=== PATIENT | male | born 1970 ===

== ENCOUNTER 2018-07-18 10:40 | Inpatient (IN) ==
[2018-07-18] MEDS ORDERED: INFLUENZA VIRUS VACCINE 0.5 ML SYRINGE IM ONE (13:50)
[2018-07-18] MEDS ORDERED: traZODone 50 MG TABLET PO PRN (15:04)
[2018-07-18] MEDS ORDERED: DOCUSATE SODIUM 100 MG CAPSULE PO PRN (15:04)
[2018-07-18] MEDS ORDERED: ONDANSETRON 4 MG/2 ML VIAL IV PRN (15:04)
[2018-07-18] MEDS ORDERED: DEXTROSE 50% 25 GM/50 ML SYRINGE IV PRN (15:09)
[2018-07-18] MEDS ORDERED: GLUCAGON 1 MG VIAL IM PRN (15:09)
[2018-07-18 15:29] LABS: Basophils # 0.1 10*3/uL (0.0-0.2); Basophils % 0.4 % (0.0-0.8); Eosinophils % 0.2 % (0.00-10.9); Hematocrit 31.6 VOL% (42.0-52.0); Hemoglobin 10.9 GM/DL (14.0-18.0); Immature Granulocytes % 0.8 %; Immature Granulocytes Absolute 0.11 #; Lymphocytes # 0.8 10*3/uL (1.4-4.0); Lymphocytes % 5.4 % (21.2-54.2); Mean Corpuscular HGB Conc 34.5 GM/DL (32-36); Mean Corpuscular Hemoglobin 31 PG (27-34); Mean Platelet Volume 12.3 FL (9.6-12.0); Monocytes # 1.2 10*3/uL (0.11-0.8); Monocytes % 8.3 % (1.7-12.7); Neutrophils # 11.7 10*3/uL (1.4-7.4); Neutrophils % 84.9 % (38.7-73.9); Red Blood Count 3.51 MC/CUMM (3.8-5.5); Red Cell Distribution Width 15.1 % (9.3-17.3); White Blood Count 13.8 T/CUMM (4-12)
[2018-07-18 15:53] LABS: Albumin 1.4 G/DL (3.4-5.0); Bilirubin,Total 2.8 MG/DL (0.2-1.0); Calcium 8.2 MG/DL (8.5-10.1); Osmolality,Calculated 279.5 MOS/KG (273-304); Total Protein 6.7 G/DL (6.4-8.3)
[2018-07-18 15:56] LABS: Platelet Count 33 T/CUMM (130-400)
[2018-07-18] MEDS ORDERED: CEFTAROLINE 600 MG in SODIUM CHLORIDE 0.9% 100 ML IV ONE (16:00)
[2018-07-18 16:15] LABS: Band Neutrophils 14 % (0-10); Eosinophils 1 % (0-10); Lymphocytes 8 % (20-55); Segmented Neutrophils 68 % (50-85); Total Cells Counted 100
[2018-07-18 16:16] LABS: Anisocytosis 1+; Platelet Estimate Decreased
[2018-07-18] MEDS: MORPHINE 4 MG/1 ML VIAL IV PRN ×2 (16:42→20:52)
[2018-07-18] MEDS: INSULIN LISPRO 100 UNIT/ML SUBCUT SCH ×2 (16:45→20:51)
[2018-07-18] MEDS: chlordiazePOXIDE 10 MG CAPSULE PO SCH (20:51)
[2018-07-18] MEDS: THIAMINE 100 MG TABLET PO SCH (20:51)
[2018-07-18] MEDS: FOLIC ACID 1 MG TABLET PO SCH (20:51)
[2018-07-19] MEDS: MORPHINE 4 MG/1 ML VIAL IV PRN ×2 (03:06→08:17)
[2018-07-19 05:07] LABS: Basophils # 0.1 10*3/uL (0.0-0.2); Basophils % 0.6 % (0.0-0.8); Eosinophils % 0.1 % (0.00-10.9); Hematocrit 35.1 VOL% (42.0-52.0); Hemoglobin 11.9 GM/DL (14.0-18.0); Immature Granulocytes % 1.1 %; Immature Granulocytes Absolute 0.19 #; Lymphocytes # 0.7 10*3/uL (1.4-4.0); Lymphocytes % 3.8 % (21.2-54.2); Mean Corpuscular HGB Conc 33.9 GM/DL (32-36); Mean Corpuscular Hemoglobin 31 PG (27-34); Mean Corpuscular Volume 90.7 FL (87-102); Mean Platelet Volume 13.5 FL (9.6-12.0); Monocytes % 5.8 % (1.7-12.7); Neutrophils # 15.5 10*3/uL (1.4-7.4); Neutrophils % 88.6 % (38.7-73.9); Red Blood Count 3.87 MC/CUMM (3.8-5.5); Red Cell Distribution Width 15.3 % (9.3-17.3); White Blood Count 17.5 T/CUMM (4-12)
[2018-07-19 05:13] LABS: Platelet Count 40 T/CUMM (130-400)
[2018-07-19 05:22] LABS: Calcium 8.2 MG/DL (8.5-10.1); Osmolality,Calculated 273.2 MOS/KG (273-304); Potassium 3.9 MMOL/L (3.5-5.1)
[2018-07-19 05:39] LABS: Folate 7.5 NG/ML (5.4-24.0); Vitamin B12 > 2000 PG/ML (211-911)
[2018-07-19 05:40] LABS: % Iron Saturation 42.6 % (18-50); Ferritin 2142.2 ng/ml (26-388)
[2018-07-19 06:19] LABS: Sedimentation Rate-Westergren 51 MM/HR (0-15)
[2018-07-19] MEDS: CEFTAROLINE 600 MG in SODIUM CHLORIDE 0.9% 100 ML IV SCH ×2 (06:26→17:58)
[2018-07-19 06:44] LABS: Band Neutrophils 4 % (0-10); Lymphocytes 3 % (20-55); Segmented Neutrophils 89 % (50-85)
[2018-07-19 06:45] LABS: Platelet Estimate Decreased; Polychromasia Few
[2018-07-19 06:46] LABS: Anisocytosis 2+; Macrocytosis 1+; Microcytosis 1+
[2018-07-19 06:47] LABS: Total Cells Counted 100
[2018-07-19] MEDS: INSULIN LISPRO 100 UNIT/ML SUBCUT SCH ×4 (09:00→20:26)
[2018-07-19] MEDS: chlordiazePOXIDE 10 MG CAPSULE PO SCH ×3 (09:00→20:26)
[2018-07-19] MEDS: THIAMINE 100 MG TABLET PO SCH ×2 (09:01→20:26)
[2018-07-19] MEDS ORDERED: INSULIN GLARGINE 100 UNIT/ML SUBCUT SCH (09:30)
[2018-07-19] MEDS ORDERED: GLUCAGON 1 MG VIAL IM PRN (12:47)
[2018-07-19] MEDS ORDERED: DEXTROSE 50% 25 GM/50 ML VIAL IV PRN (12:47)
[2018-07-19] MEDS: FOLIC ACID 1 MG TABLET PO SCH (20:26)
[2018-07-19] MEDS ORDERED: ENOXAPARIN 40 MG/0.4 ML SYRINGE SUBCUT SCH (21:00)
[2018-07-20] MEDS: MORPHINE 4 MG/1 ML VIAL IV PRN (01:51)
[2018-07-20 05:21] LABS: Basophils # 0.1 10*3/uL (0.0-0.2); Basophils % 0.6 % (0.0-0.8); Eosinophils # 0.1 10*3/uL (0.0-0.87); Eosinophils % 0.3 % (0.00-10.9); Hematocrit 30.8 VOL% (42.0-52.0); Hemoglobin 10.3 GM/DL (14.0-18.0); Immature Granulocytes % 2.3 %; Lymphocytes # 1.3 10*3/uL (1.4-4.0); Lymphocytes % 6.1 % (21.2-54.2); Mean Corpuscular HGB Conc 33.4 GM/DL (32-36); Mean Corpuscular Hemoglobin 31 PG (27-34); Mean Corpuscular Volume 91.7 FL (87-102); Monocytes # 1.4 10*3/uL (0.11-0.8); Monocytes % 6.4 % (1.7-12.7); NRBC # 0.03 10*3/uL; Neutrophils # 17.9 10*3/uL (1.4-7.4); Neutrophils % 84.3 % (38.7-73.9); Red Blood Count 3.36 MC/CUMM (3.8-5.5); Red Cell Distribution Width 15.8 % (9.3-17.3); White Blood Count 21.3 T/CUMM (4-12)
[2018-07-20 05:24] LABS: Platelet Count 42 T/CUMM (130-400)
[2018-07-20 05:39] LABS: Calcium 8.1 MG/DL (8.5-10.1); Osmolality,Calculated 274.2 MOS/KG (273-304); Potassium 3.8 MMOL/L (3.5-5.1)
[2018-07-20] MEDS: CEFTAROLINE 600 MG in SODIUM CHLORIDE 0.9% 100 ML IV SCH ×2 (05:41→18:05)
[2018-07-20 05:44] LABS: Band Neutrophils 2 % (0-10); Hypochromasia Slight; Lymphocytes 6 % (20-55); Metamyelocytes 1 %; Platelet Estimate Decreased; Segmented Neutrophils 85 % (50-85); Total Cells Counted 100
[2018-07-20] MEDS ORDERED: INSULIN GLARGINE 100 UNIT/ML SUBCUT SCH (07:31)
[2018-07-20] MEDS: SODIUM CHLORIDE 0.9% 1,000 ML IV SCH ×2 (08:44→22:21)
[2018-07-20] MEDS: chlordiazePOXIDE 10 MG CAPSULE PO SCH ×3 (08:49→20:21)
[2018-07-20] MEDS: THIAMINE 100 MG TABLET PO SCH ×2 (08:49→20:21)
[2018-07-20] MEDS: INSULIN LISPRO 100 UNIT/ML SUBCUT SCH ×4 (08:50→20:21)
[2018-07-20] MEDS ORDERED: CALCIUM CARBONATE CHEW 500 MG TABLET PO PRN (09:21)
[2018-07-20] MEDS: FOLIC ACID 1 MG TABLET PO SCH (20:21)
[2018-07-21] MEDS: SODIUM CHLORIDE 0.9% 1,000 ML IV SCH ×2 (01:48→10:16)
[2018-07-21 04:49] LABS: Basophils # 0.1 10*3/uL (0.0-0.2); Basophils % 0.5 % (0.0-0.8); Eosinophils # 0.1 10*3/uL (0.0-0.87); Eosinophils % 0.6 % (0.00-10.9); Hematocrit 29.9 VOL% (42.0-52.0); Immature Granulocytes % 3.5 %; Immature Granulocytes Absolute 0.44 #; Lymphocytes # 1.2 10*3/uL (1.4-4.0); Lymphocytes % 9.6 % (21.2-54.2); Mean Corpuscular HGB Conc 33.4 GM/DL (32-36); Mean Corpuscular Hemoglobin 31 PG (27-34); Mean Corpuscular Volume 93.4 FL (87-102); Mean Platelet Volume 11.8 FL (9.6-12.0); Monocytes % 8.1 % (1.7-12.7); NRBC # 0.08 10*3/uL; Neutrophils # 9.9 10*3/uL (1.4-7.4); Neutrophils % 77.7 % (38.7-73.9); Red Cell Distribution Width 16.4 % (9.3-17.3); White Blood Count 12.7 T/CUMM (4-12)
[2018-07-21 04:54] LABS: Platelet Count 31 T/CUMM (130-400)
[2018-07-21 05:13] LABS: Calcium 7.8 MG/DL (8.5-10.1); Osmolality,Calculated 282.2 MOS/KG (273-304); Potassium 3.7 MMOL/L (3.5-5.1)
[2018-07-21 05:14] LABS: Band Neutrophils 5 % (0-10); Hypochromasia 1+; Lymphocytes 4 % (20-55); Microcytosis Slight; Ovalocytes Slight; Platelet Estimate Decreased; Segmented Neutrophils 86 % (50-85); Total Cells Counted 100
[2018-07-21] MEDS: CEFTAROLINE 600 MG in SODIUM CHLORIDE 0.9% 100 ML IV SCH (05:39)
[2018-07-21] MEDS ORDERED: INSULIN GLARGINE 100 UNIT/ML SUBCUT SCH ×2 (07:36→15:39)
[2018-07-21] MEDS: INSULIN LISPRO 100 UNIT/ML SUBCUT SCH ×4 (08:06→20:58)
[2018-07-21] MEDS: chlordiazePOXIDE 10 MG CAPSULE PO SCH ×3 (08:07→20:58)
[2018-07-21] MEDS: THIAMINE 100 MG TABLET PO SCH ×2 (08:07→20:58)
[2018-07-21 11:05] LABS: Hemoglobin A1 (Alkaline) 97.2 % (96.5-98.5); Hemoglobin A2 (Alkaline) 2.8 % (1.5-3.5)
[2018-07-21] MEDS: VANCOMYCIN INJ 1,000 MG in SODIUM CHLORIDE 0.9% 250 ML IV SCH (16:37)
[2018-07-21 19:03] LABS: Calcium 7.7 MG/DL (8.5-10.1); Osmolality,Calculated 272.4 MOS/KG (273-304); Potassium 3.8 MMOL/L (3.5-5.1)
[2018-07-21] MEDS: FOLIC ACID 1 MG TABLET PO SCH (20:58)
[2018-07-21] MEDS: LACTULOSE 20 GM/30 ML UDCUP PO SCH (23:25)
[2018-07-22] MEDS: SODIUM CHLORIDE 0.9% 1,000 ML IV SCH (02:17)
[2018-07-22] MEDS: LACTULOSE 20 GM/30 ML UDCUP PO SCH ×3 (05:01→22:09)
[2018-07-22 05:08] LABS: Basophils % 0.5 % (0.0-0.8); Eosinophils # 0.1 10*3/uL (0.0-0.87); Eosinophils % 0.8 % (0.00-10.9); Hematocrit 29.7 VOL% (42.0-52.0); Hemoglobin 9.8 GM/DL (14.0-18.0); Immature Granulocytes % 3.7 %; Immature Granulocytes Absolute 0.31 #; Lymphocytes # 1.3 10*3/uL (1.4-4.0); Lymphocytes % 15.7 % (21.2-54.2); Mean Corpuscular Hemoglobin 31 PG (27-34); Mean Corpuscular Volume 95.2 FL (87-102); Mean Platelet Volume 13.3 FL (9.6-12.0); Monocytes # 0.8 10*3/uL (0.11-0.8); Monocytes % 9.9 % (1.7-12.7); Neutrophils # 5.8 10*3/uL (1.4-7.4); Neutrophils % 69.4 % (38.7-73.9); Red Blood Count 3.12 MC/CUMM (3.8-5.5); Red Cell Distribution Width 17.3 % (9.3-17.3); White Blood Count 8.4 T/CUMM (4-12)
[2018-07-22 05:11] LABS: Platelet Count 35 T/CUMM (130-400)
[2018-07-22 05:26] LABS: Calcium 7.6 MG/DL (8.5-10.1); Osmolality,Calculated 281.5 MOS/KG (273-304); Potassium 3.8 MMOL/L (3.5-5.1)
[2018-07-22 05:29] LABS: Band Neutrophils 2 % (0-10); Hypochromasia 1+; Lymphocytes 9 % (20-55); Microcytosis Slight; Nucleated Red Blood Cells 1 (0-5); Platelet Estimate Decreased; Segmented Neutrophils 83 % (50-85); Total Cells Counted 100
[2018-07-22] MEDS ORDERED: SODIUM CHLORIDE 0.9% 1,000 ML IV PRN (07:20)
[2018-07-22] MEDS ORDERED: LIDOCAINE 1%/EPI INJ 20 ML VIAL ONE (10:39)
[2018-07-22] MEDS ORDERED: FAMOTIDINE 20 MG/2 ML VIAL IV ONE ×2 (10:49→10:55)
[2018-07-22] MEDS ORDERED: PROPOFOL 200 MG/20 ML VIAL IV ONE (11:55)
[2018-07-22] MEDS ORDERED: SEVOFLURANE 1 UNIT/15 MINUTE INH ONE (11:56)
[2018-07-22] MEDS ORDERED: fentaNYL 100 MCG/2 ML VIAL ONE (11:56)
[2018-07-22] MEDS ORDERED: PHENYLEPHRINE 1 MG/10 ML SYRINGE IV ONE (11:56)
[2018-07-22] MEDS ORDERED: ONDANSETRON 4 MG/2 ML VIAL IV PRN (12:06)
[2018-07-22] MEDS ORDERED: HYDROmorphone 2 MG/1 ML VIAL IV PRN (12:06)
[2018-07-22] MEDS: INSULIN LISPRO 100 UNIT/ML SUBCUT SCH ×4 (14:28→22:09)
[2018-07-22] MEDS: chlordiazePOXIDE 10 MG CAPSULE PO SCH ×3 (14:29→22:09)
[2018-07-22] MEDS: THIAMINE 100 MG TABLET PO SCH ×2 (14:30→22:09)
[2018-07-22] MEDS: SILDENAFIL 20 MG TABLET PO SCH ×2 (14:30→19:04)
[2018-07-22] MEDS: VANCOMYCIN INJ 1,000 MG in SODIUM CHLORIDE 0.9% 250 ML IV SCH (14:32)
[2018-07-22] MEDS: FOLIC ACID 1 MG TABLET PO SCH (22:09)
[2018-07-23 05:54] LABS: Basophils % 0.3 % (0.0-0.8); Eosinophils # 0.1 10*3/uL (0.0-0.87); Eosinophils % 1.1 % (0.00-10.9); Hematocrit 27.9 VOL% (42.0-52.0); Hemoglobin 8.9 GM/DL (14.0-18.0); Immature Granulocytes % 5.4 %; Lymphocytes # 1.5 10*3/uL (1.4-4.0); Lymphocytes % 20.3 % (21.2-54.2); Mean Corpuscular HGB Conc 31.9 GM/DL (32-36); Mean Corpuscular Hemoglobin 31 PG (27-34); Mean Corpuscular Volume 97.9 FL (87-102); Mean Platelet Volume 11.9 FL (9.6-12.0); Monocytes # 0.9 10*3/uL (0.11-0.8); Monocytes % 12.2 % (1.7-12.7); NRBC # 0.17 10*3/uL; Neutrophils # 4.5 10*3/uL (1.4-7.4); Neutrophils % 60.7 % (38.7-73.9); Red Blood Count 2.85 MC/CUMM (3.8-5.5); Red Cell Distribution Width 17.8 % (9.3-17.3); White Blood Count 7.5 T/CUMM (4-12)
[2018-07-23 05:55] LABS: Platelet Count 64 T/CUMM (130-400)
[2018-07-23] MEDS: VANCOMYCIN INJ 1,000 MG in SODIUM CHLORIDE 0.9% 250 ML IV SCH (06:00)
[2018-07-23] MEDS: LACTULOSE 20 GM/30 ML UDCUP PO SCH ×3 (06:01→21:54)
[2018-07-23 06:21] LABS: Eosinophils 1 % (0-10); Lymphocytes 11 % (20-55); Nucleated Red Blood Cells 4 (0-5); Polychromasia Few; Segmented Neutrophils 84 % (50-85); Total Cells Counted 100
[2018-07-23 06:23] LABS: Calcium 7.3 MG/DL (8.5-10.1); Osmolality,Calculated 280.7 MOS/KG (273-304); Platelet Estimate Normal; Potassium 3.5 MMOL/L (3.5-5.1)
[2018-07-23] MEDS: INSULIN LISPRO 100 UNIT/ML SUBCUT SCH ×4 (07:30→21:54)
[2018-07-23] MEDS: SILDENAFIL 20 MG TABLET PO SCH ×3 (08:00→17:00)
[2018-07-23] MEDS ORDERED: SEVOFLURANE 1 UNIT/15 MINUTE INH ONE (08:27)
[2018-07-23] MEDS ORDERED: PROPOFOL 200 MG/20 ML VIAL IV ONE (08:27)
[2018-07-23] MEDS ORDERED: PHENYLEPHRINE 1 MG/10 ML SYRINGE IV ONE (08:28)
[2018-07-23] MEDS ORDERED: fentaNYL 100 MCG/2 ML VIAL ONE (08:28)
[2018-07-23] MEDS ORDERED: ROCURONIUM 100 MG/10 ML VIAL IV ONE (08:28)
[2018-07-23] MEDS ORDERED: ONDANSETRON 4 MG/2 ML VIAL ONE (08:28)
[2018-07-23] MEDS ORDERED: SUCCINYLCHOLINE 200 MG/10 ML VIAL ONE (08:28)
[2018-07-23] MEDS: INSULIN GLARGINE 100 UNIT/ML SUBCUT SCH (09:00)
[2018-07-23] MEDS: THIAMINE 100 MG TABLET PO SCH ×2 (10:45→21:54)
[2018-07-23] MEDS: chlordiazePOXIDE 10 MG CAPSULE PO SCH ×3 (10:45→21:54)
[2018-07-23] MEDS: FOLIC ACID 1 MG TABLET PO SCH (21:54)
[2018-07-24] MEDS: VANCOMYCIN INJ 1,000 MG in SODIUM CHLORIDE 0.9% 250 ML IV SCH (00:22)
[2018-07-24] MEDS: LACTULOSE 20 GM/30 ML UDCUP PO SCH ×3 (05:58→22:35)
[2018-07-24 06:22] LABS: Basophils % 0.2 % (0.0-0.8); Eosinophils # 0.1 10*3/uL (0.0-0.87); Eosinophils % 1.1 % (0.00-10.9); Hemoglobin 7.7 GM/DL (14.0-18.0); Immature Granulocytes % 3.1 %; Immature Granulocytes Absolute 0.25 #; Lymphocytes # 1.3 10*3/uL (1.4-4.0); Lymphocytes % 15.7 % (21.2-54.2); Mean Corpuscular HGB Conc 30.8 GM/DL (32-36); Mean Corpuscular Hemoglobin 31 PG (27-34); Mean Corpuscular Volume 99.6 FL (87-102); Mean Platelet Volume 12.1 FL (9.6-12.0); Monocytes # 0.8 10*3/uL (0.11-0.8); Monocytes % 10.4 % (1.7-12.7); NRBC # 0.12 10*3/uL; Neutrophils # 5.6 10*3/uL (1.4-7.4); Neutrophils % 69.5 % (38.7-73.9); Red Blood Count 2.51 MC/CUMM (3.8-5.5); White Blood Count 8.1 T/CUMM (4-12)
[2018-07-24 06:24] LABS: Platelet Count 45 T/CUMM (130-400)
[2018-07-24] MEDS ORDERED: LIDOCAINE 1%/EPI INJ 20 ML VIAL ONE (06:33)
[2018-07-24 06:34] LABS: Calcium 7.4 MG/DL (8.5-10.1); Potassium 3.3 MMOL/L (3.5-5.1)
[2018-07-24 06:39] LABS: Hypochromasia 1+; Ovalocytes Slight; Platelet Estimate Decreased
[2018-07-24 06:40] LABS: Microcytosis Slight
[2018-07-24] MEDS: INSULIN LISPRO 100 UNIT/ML SUBCUT SCH ×4 (07:30→20:15)
[2018-07-24] MEDS: SILDENAFIL 20 MG TABLET PO SCH ×3 (08:00→16:43)
[2018-07-24] MEDS ORDERED: VANCOMYCIN INJ 1,000 MG in SODIUM CHLORIDE 0.9% 250 ML IV SCH (08:00)
[2018-07-24] MEDS ORDERED: PHENYLEPHRINE 1 MG/10 ML SYRINGE IV ONE (08:31)
[2018-07-24] MEDS ORDERED: PROPOFOL 200 MG/20 ML VIAL IV ONE (08:31)
[2018-07-24] MEDS ORDERED: SEVOFLURANE 1 UNIT/15 MINUTE INH ONE (08:31)
[2018-07-24] MEDS ORDERED: ONDANSETRON 4 MG/2 ML VIAL ONE (08:31)
[2018-07-24] MEDS ORDERED: fentaNYL 100 MCG/2 ML VIAL ONE (08:31)
[2018-07-24] MEDS: INSULIN GLARGINE 100 UNIT/ML SUBCUT SCH (10:11)
[2018-07-24] MEDS: chlordiazePOXIDE 10 MG CAPSULE PO SCH ×3 (10:11→20:19)
[2018-07-24] MEDS: THIAMINE 100 MG TABLET PO SCH ×2 (10:12→20:19)
[2018-07-24] MEDS ORDERED: GLUCAGON 1 MG VIAL IM PRN (11:52)
[2018-07-24] MEDS ORDERED: DEXTROSE 50% 25 GM/50 ML SYRINGE IV PRN (11:52)
[2018-07-24] MEDS ORDERED: SODIUM CHLORIDE 0.9% 1,000 ML IV PRN (12:11)
[2018-07-24] MEDS: NAFCILLIN 1,000 MG in SODIUM CHLORIDE 0.9% 100 ML IV SCH ×3 (12:26→23:32)
[2018-07-24] MEDS: FOLIC ACID 1 MG TABLET PO SCH (20:19)
[2018-07-25] MEDS: NAFCILLIN 1,000 MG in SODIUM CHLORIDE 0.9% 100 ML IV SCH ×6 (03:15→23:27)
[2018-07-25 05:19] LABS: Calcium 6.9 MG/DL (8.5-10.1); Osmolality,Calculated 293.4 MOS/KG (273-304); Potassium 3.1 MMOL/L (3.5-5.1)
[2018-07-25 05:21] LABS: Basophils % 0.4 % (0.0-0.8); Eosinophils # 0.1 10*3/uL (0.0-0.87); Eosinophils % 1.7 % (0.00-10.9); Hematocrit 28.7 VOL% (42.0-52.0); Hemoglobin 9.1 GM/DL (14.0-18.0); Immature Granulocytes % 1.2 %; Lymphocytes # 1.3 10*3/uL (1.4-4.0); Lymphocytes % 15.8 % (21.2-54.2); Mean Corpuscular HGB Conc 31.7 GM/DL (32-36); Mean Corpuscular Hemoglobin 31 PG (27-34); Mean Platelet Volume 12.1 FL (9.6-12.0); Monocytes # 0.6 10*3/uL (0.11-0.8); Monocytes % 7.1 % (1.7-12.7); NRBC # 0.04 10*3/uL; Neutrophils % 73.8 % (38.7-73.9); White Blood Count 8.1 T/CUMM (4-12)
[2018-07-25 05:41] LABS: Platelet Count 37 T/CUMM (130-400)
[2018-07-25] MEDS: LACTULOSE 20 GM/30 ML UDCUP PO SCH ×4 (05:44→22:59)
[2018-07-25 05:45] LABS: Hypochromasia 1+; Ovalocytes Slight; Platelet Estimate Decreased
[2018-07-25 05:46] LABS: Microcytosis Slight
[2018-07-25] MEDS: INSULIN LISPRO 100 UNIT/ML SUBCUT SCH ×4 (07:37→20:42)
[2018-07-25] MEDS: MORPHINE 4 MG/1 ML VIAL IV PRN (08:30)
[2018-07-25] MEDS: INSULIN GLARGINE 100 UNIT/ML SUBCUT SCH (10:08)
[2018-07-25] MEDS: chlordiazePOXIDE 10 MG CAPSULE PO SCH ×3 (10:10→20:44)
[2018-07-25] MEDS: THIAMINE 100 MG TABLET PO SCH ×2 (10:10→20:44)
[2018-07-25] MEDS: SILDENAFIL 20 MG TABLET PO SCH ×3 (10:23→17:19)
[2018-07-25] MEDS ORDERED: FUROSEMIDE 40 MG/4 ML VIAL IV ONE (12:32)
[2018-07-25] MEDS ORDERED: FUROSEMIDE 20 MG/2 ML VIAL IV ONE (12:32)
[2018-07-25] MEDS ORDERED: POTASSIUM CHLORIDE 20 MEQ TABLET PO PRN (12:34)
[2018-07-25] MEDS: FOLIC ACID 1 MG TABLET PO SCH (20:44)
[2018-07-26] MEDS: NAFCILLIN 1,000 MG in SODIUM CHLORIDE 0.9% 100 ML IV SCH ×6 (03:21→22:59)
[2018-07-26] MEDS: LACTULOSE 20 GM/30 ML UDCUP PO SCH ×3 (06:01→22:57)
[2018-07-26 06:23] LABS: Basophils % 0.2 % (0.0-0.8); Eosinophils # 0.1 10*3/uL (0.0-0.87); Eosinophils % 1.4 % (0.00-10.9); Hematocrit 29.6 VOL% (42.0-52.0); Hemoglobin 9.3 GM/DL (14.0-18.0); Immature Granulocytes % 0.5 %; Immature Granulocytes Absolute 0.05 #; Lymphocytes # 2.1 10*3/uL (1.4-4.0); Lymphocytes % 21.6 % (21.2-54.2); Mean Corpuscular HGB Conc 31.4 GM/DL (32-36); Mean Corpuscular Hemoglobin 31 PG (27-34); Mean Platelet Volume 10.7 FL (9.6-12.0); Monocytes # 0.7 10*3/uL (0.11-0.8); Monocytes % 6.8 % (1.7-12.7); NRBC # 0.05 10*3/uL; Neutrophils # 6.8 10*3/uL (1.4-7.4); Neutrophils % 69.5 % (38.7-73.9); Platelet Count 47 T/CUMM (130-400); Red Blood Count 3.05 MC/CUMM (3.8-5.5); Red Cell Distribution Width 18.3 % (9.3-17.3); White Blood Count 9.7 T/CUMM (4-12)
[2018-07-26 06:26] LABS: Osmolality,Calculated 291.4 MOS/KG (273-304); Potassium 2.6 MMOL/L (3.5-5.1)
[2018-07-26] MEDS: INSULIN LISPRO 100 UNIT/ML SUBCUT SCH ×4 (07:47→22:58)
[2018-07-26] MEDS: SILDENAFIL 20 MG TABLET PO SCH ×3 (07:49→17:41)
[2018-07-26] MEDS: INSULIN GLARGINE 100 UNIT/ML SUBCUT SCH (07:59)
[2018-07-26] MEDS ORDERED: MAGNESIUM SULF RIDER 2 GM in PREMIX 1 EACH IV ONE (09:00)
[2018-07-26] MEDS: POTASSIUM CHLORIDE RIDER 100 ML IV SCH ×2 (09:28→11:02)
[2018-07-26] MEDS: MORPHINE 4 MG/1 ML VIAL IV PRN (09:28)
[2018-07-26 09:56] LABS: Platelet Estimate Decreased
[2018-07-26] MEDS: SODIUM CHLORIDE 0.45% 1,000 ML IV SCH (10:50)
[2018-07-26] MEDS: chlordiazePOXIDE 10 MG CAPSULE PO SCH ×3 (11:25→22:58)
[2018-07-26] MEDS: FUROSEMIDE 40 MG TABLET PO SCH (11:25)
[2018-07-26] MEDS: THIAMINE 100 MG TABLET PO SCH ×2 (11:26→22:58)
[2018-07-26] MEDS: methylPREDNISolone SOD SUC 40 MG/1 ML VIAL IV SCH ×2 (12:50→22:57)
[2018-07-26] MEDS: ALBUTEROL/IPRATROPIUM 3 ML NEB RESP TX SCH ×2 (12:55→19:23)
[2018-07-26 14:11] LABS: Calcium 6.8 MG/DL (8.5-10.1); Osmolality,Calculated 288.6 MOS/KG (273-304); Potassium 3.1 MMOL/L (3.5-5.1)
[2018-07-26] MEDS: POTASSIUM CHLORIDE RIDER 10 MEQ in PREMIX 1 EACH IV SCH ×3 (15:13→18:32)
[2018-07-26] MEDS: FOLIC ACID 1 MG TABLET PO SCH (22:59)
[2018-07-27] MEDS: ALBUTEROL/IPRATROPIUM 3 ML NEB RESP TX SCH ×4 (01:41→19:12)
[2018-07-27] MEDS: NAFCILLIN 1,000 MG in SODIUM CHLORIDE 0.9% 100 ML IV SCH ×6 (03:53→23:13)
[2018-07-27] MEDS: LACTULOSE 20 GM/30 ML UDCUP PO SCH ×3 (06:11→21:17)
[2018-07-27 07:16] LABS: Basophils % 0.6 % (0.0-0.8); Eosinophils # 0.1 10*3/uL (0.0-0.87); Eosinophils % 1.4 % (0.00-10.9); Hematocrit 26.9 VOL% (42.0-52.0); Hemoglobin 8.6 GM/DL (14.0-18.0); Immature Granulocytes % 0.6 %; Immature Granulocytes Absolute 0.04 #; Lymphocytes # 1.6 10*3/uL (1.4-4.0); Lymphocytes % 22.1 % (21.2-54.2); Mean Corpuscular Hemoglobin 31 PG (27-34); Mean Corpuscular Volume 97.8 FL (87-102); Monocytes # 0.4 10*3/uL (0.11-0.8); Monocytes % 5.2 % (1.7-12.7); NRBC # 0.03 10*3/uL; Neutrophils % 70.1 % (38.7-73.9); Red Blood Count 2.75 MC/CUMM (3.8-5.5); Red Cell Distribution Width 17.7 % (9.3-17.3); White Blood Count 7.1 T/CUMM (4-12)
[2018-07-27 07:19] LABS: Platelet Count 42 T/CUMM (130-400)
[2018-07-27 07:34] LABS: Calcium 6.9 MG/DL (8.5-10.1); Osmolality,Calculated 286.8 MOS/KG (273-304); Potassium 3.3 MMOL/L (3.5-5.1)
[2018-07-27] MEDS ORDERED: INSULIN GLARGINE 100 UNIT/ML SUBCUT SCH ×3 (09:00→14:38)
[2018-07-27] MEDS: POTASSIUM CHLORIDE RIDER 10 MEQ in PREMIX 1 EACH IV PRN ×2 (09:11→11:29)
[2018-07-27] MEDS: INSULIN LISPRO 100 UNIT/ML SUBCUT SCH ×4 (11:27→21:19)
[2018-07-27] MEDS: FUROSEMIDE 40 MG TABLET PO SCH (11:28)
[2018-07-27] MEDS: chlordiazePOXIDE 10 MG CAPSULE PO SCH ×3 (11:28→21:17)
[2018-07-27] MEDS: THIAMINE 100 MG TABLET PO SCH ×2 (11:28→21:18)
[2018-07-27] MEDS: SILDENAFIL 20 MG TABLET PO SCH ×3 (11:28→17:02)
[2018-07-27] MEDS: methylPREDNISolone SOD SUC 40 MG/1 ML VIAL IV SCH ×2 (12:21→23:14)
[2018-07-27] MEDS: SODIUM CHLORIDE 0.45% 1,000 ML IV SCH ×2 (13:03→21:17)
[2018-07-27] MEDS ORDERED: MICROFIBRILLAR COLLAGEN POWDER 1 GM CAN TOP ONE (14:26)
[2018-07-27] MEDS ORDERED: MIDAZOLAM 2 MG/2 ML VIAL ONE (14:55)
[2018-07-27] MEDS ORDERED: SEVOFLURANE 1 UNIT/15 MINUTE INH ONE (14:55)
[2018-07-27] MEDS ORDERED: ETOMIDATE 40 MG/20 ML VIAL IV ONE (14:56)
[2018-07-27] MEDS ORDERED: PHENYLEPHRINE 1 MG/10 ML SYRINGE IV ONE (14:56)
[2018-07-27] MEDS ORDERED: fentaNYL 100 MCG/2 ML VIAL ONE (14:56)
[2018-07-27] MEDS ORDERED: MEPERIDINE 25 MG/1 ML VIAL IV PRN (15:00)
[2018-07-27] MEDS ORDERED: ONDANSETRON 4 MG/2 ML VIAL IV PRN (15:00)
[2018-07-27] MEDS: FOLIC ACID 1 MG TABLET PO SCH (21:18)
[2018-07-27] MEDS: POTASSIUM CHLORIDE 20 MEQ TABLET PO SCH (21:18)
[2018-07-28] MEDS: ALBUTEROL/IPRATROPIUM 3 ML NEB RESP TX SCH ×3 (00:49→13:55)
[2018-07-28] MEDS: NAFCILLIN 1,000 MG in SODIUM CHLORIDE 0.9% 100 ML IV SCH ×4 (03:00→14:34)
[2018-07-28 06:19] LABS: Basophils % 0.1 % (0.0-0.8); Eosinophils % 0.1 % (0.00-10.9); Hematocrit 27.5 VOL% (42.0-52.0); Hemoglobin 8.5 GM/DL (14.0-18.0); Immature Granulocytes % 0.5 %; Immature Granulocytes Absolute 0.04 #; Lymphocytes # 0.7 10*3/uL (1.4-4.0); Lymphocytes % 9.3 % (21.2-54.2); Mean Corpuscular HGB Conc 30.9 GM/DL (32-36); Mean Corpuscular Hemoglobin 31 PG (27-34); Mean Corpuscular Volume 99.6 FL (87-102); Mean Platelet Volume 11.5 FL (9.6-12.0); Monocytes # 0.2 10*3/uL (0.11-0.8); Monocytes % 2.8 % (1.7-12.7); NRBC # 0.04 10*3/uL; Neutrophils # 6.9 10*3/uL (1.4-7.4); Neutrophils % 87.2 % (38.7-73.9); Red Blood Count 2.76 MC/CUMM (3.8-5.5); Red Cell Distribution Width 17.7 % (9.3-17.3)
[2018-07-28 06:22] LABS: Platelet Count 39 T/CUMM (130-400)
[2018-07-28 06:34] LABS: Calcium 7.3 MG/DL (8.5-10.1); Osmolality,Calculated 287.4 MOS/KG (273-304); Potassium 4.2 MMOL/L (3.5-5.1)
[2018-07-28 06:42] LABS: Band Neutrophils 1 % (0-10); Hypochromasia 1+; Lymphocytes 4 % (20-55); Nucleated Red Blood Cells 1 (0-5); Platelet Estimate Decreased; Segmented Neutrophils 95 % (50-85); Total Cells Counted 100
[2018-07-28] MEDS: LACTULOSE 20 GM/30 ML UDCUP PO SCH ×2 (06:53→14:33)
[2018-07-28] MEDS: SODIUM CHLORIDE 0.45% 1,000 ML IV SCH (08:21)
[2018-07-28] MEDS: INSULIN LISPRO 100 UNIT/ML SUBCUT SCH ×2 (08:22→12:08)
[2018-07-28] MEDS: POTASSIUM CHLORIDE 20 MEQ TABLET PO SCH (08:23)
[2018-07-28] MEDS: THIAMINE 100 MG TABLET PO SCH (08:23)
[2018-07-28] MEDS: SILDENAFIL 20 MG TABLET PO SCH ×2 (08:23→12:10)
[2018-07-28] MEDS: chlordiazePOXIDE 10 MG CAPSULE PO SCH (08:23)
[2018-07-28] MEDS: FUROSEMIDE 40 MG TABLET PO SCH (08:29)
[2018-07-28] MEDS ORDERED: chlordiazePOXIDE 10 MG CAPSULE PO PRN (08:42)
[2018-07-28] MEDS ORDERED: SODIUM HYPOCHLORITE 0.25% IRRIG 473 ML BOTTLE TOP SCH (11:30)
[2018-07-28] MEDS ORDERED: CHLORHEXIDINE 4% SOLN 118 ML BOTTLE TOP SCH (11:30)
[2018-07-28 11:45] VITALS: BP 102/64
[2018-07-28] MEDS: MORPHINE 4 MG/1 ML VIAL IV PRN (11:51)
[2018-07-28] MEDS: methylPREDNISolone SOD SUC 40 MG/1 ML VIAL IV SCH (12:10)
== END 2018-07-28 15:58 | DRG 853 ==
LOC: SUATTDRO 13:22 → N.3E 13:22
PROVIDERS: ADMIT Internal Medicine; ATTEND Internal Medicine

== ENCOUNTER 2018-10-26 21:35 | Inpatient (IN) ==
[2018-10-26 23:47] LABS: Basophils % 0.6 % (0.0-0.8); Eosinophils # 0.1 10*3/uL (0.0-0.87); Eosinophils % 1.9 % (0.00-10.9); Hematocrit 43.2 VOL% (42.0-52.0); Hemoglobin 14.9 GM/DL (14.0-18.0); Immature Granulocytes % 0.2 %; Immature Granulocytes Absolute 0.01 #; Lymphocytes # 2.6 10*3/uL (1.4-4.0); Lymphocytes % 54.3 % (21.2-54.2); Mean Corpuscular HGB Conc 34.5 GM/DL (32-36); Mean Corpuscular Volume 88.7 FL (87-102); Mean Platelet Volume 10.7 FL (9.6-12.0); Platelet Count 109 T/CUMM (130-400); Red Blood Count 4.87 MC/CUMM (3.8-5.5); Red Cell Distribution Width 15.3 % (9.3-17.3); White Blood Count 4.9 T/CUMM (4-12)
[2018-10-26 23:56] LABS: Alanine Aminotransferase 22 U/L (16-61); Albumin 3.2 G/DL (3.4-5.0); Alkaline Phosphatase 284 U/L (45-117); Aspartate Amino Transferase 31 U/L (0-37); Blood Urea Nitrogen 5 MG/DL (7-18); Calcium 8.2 MG/DL (8.5-10.1); Glucose 374 MG/DL (74-106); Osmolality,Calculated 286.7 MOS/KG (273-304); Total Protein 7.7 G/DL (6.4-8.3)
[2018-10-27] MEDS ORDERED: PIPERACILLIN/TAZOBACTAM 3,375 MG in SODIUM CHLORIDE 0.9% 100 ML IV STA (00:18)
[2018-10-27] MEDS ORDERED: LACTATED RINGERS 1,000 ML IV ONE (00:20)
[2018-10-27 00:29] LABS: Barbiturates Screen,Urine Negative (Negative); Benzodiazepines Screen,Urine Negative (Negative); Cannabinoid Screen,Urine Negative (Negative); Opiate Screen,Urine Positive (Negative); Phencyclidine Screen,Urine Negative (Negative)
[2018-10-27 01:02] LABS: Sedimentation Rate-Westergren 55 MM/HR (0-15)
[2018-10-27] MEDS ORDERED: ONDANSETRON 4 MG/2 ML VIAL IV PRN (01:49)
[2018-10-27] MEDS ORDERED: ACETAMINOPHEN 325 MG TABLET PO PRN (01:49)
[2018-10-27] MEDS ORDERED: DEXTROSE 50% 25 GM/50 ML VIAL IV PRN (01:52)
[2018-10-27] MEDS ORDERED: GLUCAGON 1 MG VIAL IM PRN (01:52)
[2018-10-27 02:05] LABS: Anisocytosis Slight; Atypical Lymphocytes Few; Band Neutrophils 4 % (0-10); Eosinophils 2 % (0-10); Lymphocytes 54 % (20-55); Macrocytosis Slight; Platelet Estimate Decreased; Reactive Lymphocytes 1+; Segmented Neutrophils 34 % (50-85); Total Cells Counted 100
[2018-10-27] MEDS: LACTATED RINGERS 1,000 ML IV SCH ×4 (04:12→19:53)
[2018-10-27 05:57] LABS: Basophils % 0.7 % (0.0-0.8); Eosinophils # 0.1 10*3/uL (0.0-0.87); Eosinophils % 2.5 % (0.00-10.9); Hematocrit 32.3 VOL% (42.0-52.0); Immature Granulocytes % 0.2 %; Immature Granulocytes Absolute 0.01 #; Lymphocytes # 1.6 10*3/uL (1.4-4.0); Lymphocytes % 36.9 % (21.2-54.2); Mean Corpuscular HGB Conc 34.7 GM/DL (32-36); Mean Corpuscular Volume 88.3 FL (87-102); Mean Platelet Volume 11.1 FL (9.6-12.0); Monocytes % 8.5 % (1.7-12.7); Neutrophils % 51.2 % (38.7-73.9); Red Cell Distribution Width 15.2 % (9.3-17.3); White Blood Count 4.3 T/CUMM (4-12)
[2018-10-27 06:02] LABS: Red Blood Count 3.66 MC/CUMM (3.8-5.5)
[2018-10-27 06:03] LABS: Hemoglobin 11.2 GM/DL (14.0-18.0)
[2018-10-27 06:04] LABS: Platelet Count 80 T/CUMM (130-400)
[2018-10-27 06:09] LABS: Calcium 7.2 MG/DL (8.5-10.1); Osmolality,Calculated 293.8 MOS/KG (273-304)
[2018-10-27] MEDS: INSULIN REGULAR 100 UNIT/ML SUBCUT SCH ×3 (06:10→18:02)
[2018-10-27 06:29] LABS: Hypochromasia 1+; Ovalocytes Slight; Platelet Estimate Decreased
[2018-10-27 06:30] LABS: Macrocytosis Slight
[2018-10-27] MEDS ORDERED: PIPERACILLIN/TAZOBACTAM 3,375 MG in SODIUM CHLORIDE 0.9% 100 ML IV SCH (09:00)
[2018-10-27] MEDS ORDERED: LACTULOSE 20 GM/30 ML UDCUP PO PRN (09:10)
[2018-10-27] MEDS ORDERED: CALCIUM CARBONATE CHEW 500 MG TABLET PO PRN (09:10)
[2018-10-27] MEDS ORDERED: POTASSIUM BICARBONATE PO PRN (09:10)
[2018-10-27] MEDS ORDERED: traZODone 50 MG TABLET PO PRN (09:10)
[2018-10-27] MEDS ORDERED: ALBUTEROL/IPRATROPIUM 3 ML NEB RESP TX PRN (09:10)
[2018-10-27] MEDS ORDERED: chlordiazePOXIDE 10 MG CAPSULE PO PRN (09:10)
[2018-10-27] MEDS ORDERED: CIT AC PO PRN (09:10)
[2018-10-27] MEDS: PANTOPRAZOLE 40 MG TABLET PO SCH (09:39)
[2018-10-27] MEDS ORDERED: THIAMINE INJ 100 MG, FOLIC ACID INJ 1 MG, MULTIVITAMIN INJ 10 ML in SODIUM CHLORIDE 0.9... IV ONE (09:48)
[2018-10-27] MEDS: SUCRALFATE 1 GM TABLET PO SCH ×2 (12:17→17:05)
[2018-10-27] MEDS ORDERED: chlordiazePOXIDE 25 MG CAPSULE PO ONE (12:40)
[2018-10-27] MEDS: LACTULOSE 20 GM/30 ML UDCUP PO SCH ×2 (15:52→21:05)
[2018-10-27] MEDS ORDERED: traMADol 50 MG TABLET PO SCH (21:00)
[2018-10-27] MEDS ORDERED: THIAMINE 100 MG TABLET PO SCH (21:00)
[2018-10-27] MEDS ORDERED: FOLIC ACID 1 MG TABLET PO SCH (21:00)
[2018-10-27] MEDS: INSULIN GLARGINE 100 UNIT/ML SUBCUT SCH ×2 (21:06→21:08)
[2018-10-27] MEDS: POTASSIUM CHLORIDE 20 MEQ TABLET PO SCH (21:06)
[2018-10-27] MEDS: OLANZapine 5 MG TABLET PO SCH ×2 (21:08)
[2018-10-27] MEDS: chlordiazePOXIDE 25 MG CAPSULE PO SCH (22:43)
[2018-10-28] MEDS: INSULIN REGULAR 100 UNIT/ML SUBCUT SCH ×4 (00:12→18:45)
[2018-10-28] MEDS: chlordiazePOXIDE 25 MG CAPSULE PO SCH (05:00)
[2018-10-28] MEDS: LACTATED RINGERS 1,000 ML IV SCH ×3 (05:50→23:07)
[2018-10-28] MEDS: SUCRALFATE 1 GM TABLET PO SCH ×3 (07:35→17:16)
[2018-10-28] MEDS: INSULIN NPH 100 UNIT/ML SUBCUT SCH (07:44)
[2018-10-28] MEDS: LACTULOSE 20 GM/30 ML UDCUP PO SCH ×3 (09:02→21:44)
[2018-10-28] MEDS: POTASSIUM CHLORIDE 20 MEQ TABLET PO SCH ×2 (09:02→21:43)
[2018-10-28] MEDS: OLANZapine 2.5 MG TABLET PO SCH (09:03)
[2018-10-28] MEDS: PANTOPRAZOLE 40 MG TABLET PO SCH (09:03)
[2018-10-28] MEDS: FUROSEMIDE 40 MG TABLET PO SCH (09:59)
[2018-10-28] MEDS ORDERED: THIAMINE INJ 100 MG, FOLIC ACID INJ 1 MG, MULTIVITAMIN INJ 10 ML in SODIUM CHLORIDE 0.9... IV ONE ×2 (10:00→11:00)
[2018-10-28 10:14] LABS: Basophils % 0.5 % (0.0-0.8); Eosinophils # 0.1 10*3/uL (0.0-0.87); Eosinophils % 2.2 % (0.00-10.9); Hematocrit 30.3 VOL% (42.0-52.0); Hemoglobin 10.5 GM/DL (14.0-18.0); Immature Granulocytes % 0.3 %; Immature Granulocytes Absolute 0.01 #; Lymphocytes # 1.2 10*3/uL (1.4-4.0); Lymphocytes % 33.2 % (21.2-54.2); Mean Corpuscular HGB Conc 34.7 GM/DL (32-36); Mean Corpuscular Volume 89.6 FL (87-102); Mean Platelet Volume 12.6 FL (9.6-12.0); Monocytes % 7.3 % (1.7-12.7); Neutrophils % 56.5 % (38.7-73.9); Red Blood Count 3.38 MC/CUMM (3.8-5.5); Red Cell Distribution Width 15.4 % (9.3-17.3); White Blood Count 3.7 T/CUMM (4-12)
[2018-10-28 10:20] LABS: Calcium 7.3 MG/DL (8.5-10.1)
[2018-10-28 10:25] LABS: Platelet Count 47 T/CUMM (130-400)
[2018-10-28 10:37] LABS: Hypochromasia 1+; Platelet Estimate Decreased
[2018-10-28 10:38] LABS: Macrocytosis Slight
[2018-10-28] MEDS: OLANZapine 5 MG TABLET PO SCH (21:43)
[2018-10-28] MEDS: INSULIN GLARGINE 100 UNIT/ML SUBCUT SCH (21:44)
[2018-10-29] MEDS: INSULIN REGULAR 100 UNIT/ML SUBCUT SCH ×4 (01:16→18:33)
[2018-10-29 05:05] LABS: Calcium 8.1 MG/DL (8.5-10.1); Osmolality,Calculated 284.3 MOS/KG (273-304)
[2018-10-29] MEDS: SUCRALFATE 1 GM TABLET PO SCH ×3 (09:17→15:46)
[2018-10-29] MEDS: FUROSEMIDE 40 MG TABLET PO SCH (09:19)
[2018-10-29] MEDS: OLANZapine 2.5 MG TABLET PO SCH (09:19)
[2018-10-29] MEDS: POTASSIUM CHLORIDE 20 MEQ TABLET PO SCH ×2 (09:20→21:22)
[2018-10-29] MEDS: PANTOPRAZOLE 40 MG TABLET PO SCH (09:20)
[2018-10-29] MEDS: INSULIN NPH 100 UNIT/ML SUBCUT SCH (09:21)
[2018-10-29] MEDS: LACTULOSE 20 GM/30 ML UDCUP PO SCH ×3 (09:22→21:22)
[2018-10-29] MEDS: LACTATED RINGERS 1,000 ML IV SCH ×2 (09:23→17:19)
[2018-10-29] MEDS ORDERED: IBUPROFEN 400 MG TABLET PO PRN (14:29)
[2018-10-29] MEDS: INSULIN GLARGINE 100 UNIT/ML SUBCUT SCH (21:22)
[2018-10-29] MEDS: OLANZapine 5 MG TABLET PO SCH (21:22)
[2018-10-30] MEDS: INSULIN REGULAR 100 UNIT/ML SUBCUT SCH ×4 (00:37→18:06)
[2018-10-30] MEDS: LACTATED RINGERS 1,000 ML IV SCH ×2 (02:14→12:47)
[2018-10-30] MEDS ORDERED: ALBUTEROL 2.5 MG/3 ML NEB RESP TX PRN (07:43)
[2018-10-30] MEDS: POTASSIUM CHLORIDE 20 MEQ TABLET PO SCH ×2 (08:44→21:06)
[2018-10-30] MEDS: PANTOPRAZOLE 40 MG TABLET PO SCH (08:44)
[2018-10-30] MEDS: OLANZapine 2.5 MG TABLET PO SCH (08:45)
[2018-10-30] MEDS: FUROSEMIDE 40 MG TABLET PO SCH (08:45)
[2018-10-30] MEDS: cefTRIAXone 1,000 MG in SYRINGE 1 EACH IV SCH (08:45)
[2018-10-30] MEDS: SUCRALFATE 1 GM TABLET PO SCH ×3 (08:45→17:24)
[2018-10-30] MEDS: INSULIN NPH 100 UNIT/ML SUBCUT SCH (08:45)
[2018-10-30] MEDS: LACTULOSE 20 GM/30 ML UDCUP PO SCH ×3 (08:51→21:06)
[2018-10-30] MEDS: AZITHROMYCIN INJ 500 MG in SODIUM CHLORIDE 0.9% 250 ML IV SCH (08:52)
[2018-10-30 08:54] LABS: Basophils % 0.6 % (0.0-0.8); Eosinophils # 0.1 10*3/uL (0.0-0.87); Eosinophils % 2.8 % (0.00-10.9); Hemoglobin 11.4 GM/DL (14.0-18.0); Immature Granulocytes % 0.6 %; Immature Granulocytes Absolute 0.02 #; Lymphocytes % 30.1 % (21.2-54.2); Mean Corpuscular HGB Conc 34.5 GM/DL (32-36); Mean Corpuscular Volume 89.9 FL (87-102); Mean Platelet Volume 12.1 FL (9.6-12.0); Monocytes % 9.2 % (1.7-12.7); Neutrophils % 56.7 % (38.7-73.9); Red Blood Count 3.67 MC/CUMM (3.8-5.5); Red Cell Distribution Width 15.7 % (9.3-17.3); White Blood Count 3.3 T/CUMM (4-12)
[2018-10-30 08:55] LABS: Platelet Count 40 T/CUMM (130-400)
[2018-10-30 09:06] LABS: Eosinophils 2 % (0-10); Hypochromasia 1+; Lymphocytes 30 % (20-55); Macrocytosis Slight; Platelet Estimate Decreased; Segmented Neutrophils 62 % (50-85); Total Cells Counted 100
[2018-10-30 09:11] LABS: Calcium 8.1 MG/DL (8.5-10.1); Osmolality,Calculated 278.5 MOS/KG (273-304)
[2018-10-30 11:13] LABS: Apearance,Urine CLEAR (Clear); Bilirubin,Urine Negative (Negative); Blood, Urine Large mg/dL (Negative); Glucose,Urine (UA) Negative (Negative); Ketones,Urine Negative (Negative); Nitrite,Urine Negative (Negative); Protein,Urine 30 MG/DL; RBC,Urine 709 /HPF (0-4); Urine Color Red (Yellow)
[2018-10-30] MEDS: ENOXAPARIN 40 MG/0.4 ML SYRINGE SUBCUT SCH (11:59)
[2018-10-30] MEDS ORDERED: MAGNESIUM SULF RIDER 2 GM in PREMIX 1 EACH IV PRN (12:33)
[2018-10-30] MEDS ORDERED: MAGNESIUM SULF RIDER 4 GM in PREMIX 1 EACH IV PRN (12:33)
[2018-10-30] MEDS: ALBUTEROL/IPRATROPIUM 3 ML NEB RESP TX SCH ×2 (13:27→19:58)
[2018-10-30] MEDS: INSULIN GLARGINE 100 UNIT/ML SUBCUT SCH (21:06)
[2018-10-30] MEDS: OLANZapine 5 MG TABLET PO SCH (21:06)
[2018-10-31] MEDS: INSULIN REGULAR 100 UNIT/ML SUBCUT SCH ×3 (00:50→12:02)
[2018-10-31] MEDS: LACTATED RINGERS 1,000 ML IV SCH ×3 (00:53→11:43)
[2018-10-31] MEDS: ALBUTEROL/IPRATROPIUM 3 ML NEB RESP TX SCH ×3 (01:59→12:00)
[2018-10-31] MEDS: LACTULOSE 20 GM/30 ML UDCUP PO SCH ×2 (04:02→12:01)
[2018-10-31 06:48] LABS: Basophils % 0.5 % (0.0-0.8); Eosinophils # 0.1 10*3/uL (0.0-0.87); Eosinophils % 1.9 % (0.00-10.9); Hematocrit 32.2 VOL% (42.0-52.0); Immature Granulocytes % 0.2 %; Immature Granulocytes Absolute 0.01 #; Lymphocytes # 1.6 10*3/uL (1.4-4.0); Lymphocytes % 37.9 % (21.2-54.2); Mean Corpuscular HGB Conc 34.2 GM/DL (32-36); Mean Corpuscular Volume 91.7 FL (87-102); Mean Platelet Volume 13.3 FL (9.6-12.0); Neutrophils % 49.5 % (38.7-73.9); Platelet Count 42 T/CUMM (130-400); Red Blood Count 3.51 MC/CUMM (3.8-5.5); Red Cell Distribution Width 16.4 % (9.3-17.3); White Blood Count 4.3 T/CUMM (4-12)
[2018-10-31 07:07] LABS: Calcium 8.3 MG/DL (8.5-10.1); Osmolality,Calculated 289.5 MOS/KG (273-304)
[2018-10-31 07:08] LABS: Band Neutrophils 1 % (0-10); Eosinophils 4 % (0-10); Lymphocytes 23 % (20-55); Microcytosis 1+; Segmented Neutrophils 64 % (50-85); Total Cells Counted 100
[2018-10-31 07:09] LABS: Ovalocytes Slight; Platelet Estimate Decreased
[2018-10-31] MEDS: INSULIN NPH 100 UNIT/ML SUBCUT SCH (07:10)
[2018-10-31] MEDS ORDERED: INSULIN NPH 100 UNIT/ML SUBCUT SCH (09:46)
[2018-10-31] MEDS: ENOXAPARIN 40 MG/0.4 ML SYRINGE SUBCUT SCH (09:52)
[2018-10-31] MEDS ORDERED: INSULIN GLARGINE 100 UNIT/ML SUBCUT SCH (09:52)
[2018-10-31] MEDS: FUROSEMIDE 40 MG TABLET PO SCH (09:54)
[2018-10-31] MEDS: POTASSIUM CHLORIDE 20 MEQ TABLET PO SCH (09:54)
[2018-10-31] MEDS: OLANZapine 2.5 MG TABLET PO SCH (09:54)
[2018-10-31] MEDS: PANTOPRAZOLE 40 MG TABLET PO SCH (09:54)
[2018-10-31] MEDS: SUCRALFATE 1 GM TABLET PO SCH ×2 (09:54→12:02)
[2018-10-31] MEDS: cefTRIAXone 1,000 MG in SYRINGE 1 EACH IV SCH (09:56)
[2018-10-31] MEDS: AZITHROMYCIN INJ 500 MG in SODIUM CHLORIDE 0.9% 250 ML IV SCH (09:59)
[2018-10-31 11:57] VITALS: BP 146/91
== END 2018-10-31 14:39 | DRG 563 ==
LOC: EDUNIT# → EDBD → N.ED 21:35 → N.EDINP 10-27 01:49 → SUATTDRO 10-27 01:49 → N.3E 10-27 02:56
PROVIDERS: ADMIT Surgery; ATTEND Internal Medicine

== ENCOUNTER 2019-01-14 10:07 | Inpatient (IN) ==
[2019-01-14] MEDS ORDERED: ALBUTEROL/IPRATROPIUM 3 ML NEB RESP TX PRN (15:07)
[2019-01-14] MEDS ORDERED: ONDANSETRON 4 MG/2 ML VIAL IV PRN (15:07)
[2019-01-14] MEDS ORDERED: GLUCAGON 1 MG VIAL IM PRN (15:23)
[2019-01-14] MEDS ORDERED: DEXTROSE 50% 25 GM/50 ML VIAL IV PRN (15:23)
[2019-01-14 15:44] LABS: Basophils # 0.1 10*3/uL (0.0-0.2); Basophils % 0.5 % (0.0-0.8); Eosinophils # 0.2 10*3/uL (0.0-0.87); Eosinophils % 1.4 % (0.00-10.9); Hematocrit 29.3 VOL% (42.0-52.0); Hemoglobin 9.8 GM/DL (14.0-18.0); Immature Granulocytes % 0.5 %; Immature Granulocytes Absolute 0.06 #; Lymphocytes # 0.9 10*3/uL (1.4-4.0); Lymphocytes % 7.8 % (21.2-54.2); Mean Corpuscular HGB Conc 33.4 GM/DL (32-36); Mean Corpuscular Volume 95.8 FL (87-102); Monocytes % 8.7 % (1.7-12.7); Neutrophils % 81.1 % (38.7-73.9); Platelet Count 99 T/CUMM (130-400); Red Blood Count 3.06 MC/CUMM (3.8-5.5); Red Cell Distribution Width 13.7 % (9.3-17.3)
[2019-01-14] MEDS ORDERED: LORazepam 2 MG/1 ML VIAL IV PRN (15:55)
[2019-01-14] MEDS ORDERED: SODIUM CHLORIDE 0.9% 1,000 ML IV SCH (16:00)
[2019-01-14] MEDS ORDERED: hydrALAZINE 20 MG/1 ML VIAL IV PRN (16:06)
[2019-01-14 16:30] LABS: Albumin 1.6 G/DL (3.4-5.0); Bilirubin,Total 1.2 MG/DL (0.2-1.0); Calcium 6.9 MG/DL (8.5-10.1); Osmolality,Calculated 284.3 MOS/KG (273-304); Total Protein 5.2 G/DL (6.4-8.3)
[2019-01-14 17:11] LABS: Eosinophils 2 % (0-10); Lymphocytes 5 % (20-55); Segmented Neutrophils 88 % (50-85); Total Cells Counted 100
[2019-01-14 17:12] LABS: Platelet Estimate Decreased
[2019-01-14 17:44] LABS: INR 1.2; PT Patient Result 13.3 SECS; Partial Thromboplastin Time 33.2 SECS (0-40)
[2019-01-14] MEDS: LACTATED RINGERS 1,000 ML IV SCH (20:19)
[2019-01-14] MEDS: INSULIN LISPRO 100 UNIT/ML SUBCUT SCH (20:21)
[2019-01-14] MEDS: HYDROmorphone 2 MG/1 ML VIAL IV PRN (21:10)
[2019-01-14] MEDS: IBUPROFEN 400 MG TABLET PO PRN (21:11)
[2019-01-14] MEDS: SODIUM HYPOCHLORITE 0.25% IRRIG 473 ML BOTTLE TOP SCH (22:48)
[2019-01-14] MEDS: PIPERACILLIN/TAZOBACTAM 3,375 MG in SODIUM CHLORIDE 0.9% 100 ML IV SCH (22:49)
[2019-01-15] MEDS: PIPERACILLIN/TAZOBACTAM 3,375 MG in SODIUM CHLORIDE 0.9% 100 ML IV SCH ×3 (00:12→17:44)
[2019-01-15 03:10] LABS: Apearance,Urine CLEAR (Clear); Bilirubin,Urine Negative (Negative); Blood, Urine Large mg/dL (Negative); Glucose,Urine (UA) 50 mg/dL (Negative); Ketones,Urine Negative (Negative); Nitrite,Urine Negative (Negative); Protein,Urine 100 MG/DL; RBC,Urine 364 /HPF (0-4); Urine Color Red (Yellow); Urine Specific Gravity 1.013 (1.001-1.035); WBC,Urine 18 /HPF (0-6)
[2019-01-15] MEDS: LACTATED RINGERS 1,000 ML IV SCH ×3 (04:45→18:10)
[2019-01-15 07:32] LABS: Basophils # 0.1 10*3/uL (0.0-0.2); Basophils % 0.6 % (0.0-0.8); Eosinophils # 0.2 10*3/uL (0.0-0.87); Eosinophils % 2.2 % (0.00-10.9); Hematocrit 27.2 VOL% (42.0-52.0); Hemoglobin 9.3 GM/DL (14.0-18.0); Immature Granulocytes % 0.5 %; Immature Granulocytes Absolute 0.05 #; Lymphocytes # 1.7 10*3/uL (1.4-4.0); Lymphocytes % 17.1 % (21.2-54.2); Mean Corpuscular HGB Conc 34.2 GM/DL (32-36); Mean Corpuscular Volume 93.2 FL (87-102); Mean Platelet Volume 12.6 FL (9.6-12.0); Monocytes % 9.8 % (1.7-12.7); Neutrophils % 69.8 % (38.7-73.9); Platelet Count 94 T/CUMM (130-400); Red Blood Count 2.92 MC/CUMM (3.8-5.5); Red Cell Distribution Width 13.9 % (9.3-17.3); White Blood Count 9.7 T/CUMM (4-12)
[2019-01-15 07:49] LABS: Albumin 1.6 G/DL (3.4-5.0); Calcium 7.5 MG/DL (8.5-10.1); Osmolality,Calculated 289.1 MOS/KG (273-304); Total Protein 5.8 G/DL (6.4-8.3)
[2019-01-15 07:58] LABS: Hypochromasia Slight; Ovalocytes Few
[2019-01-15 07:59] LABS: Burr Cells Slight; Platelet Estimate Adequate; Polychromasia Few
[2019-01-15 08:05] LABS: Barbiturates Screen,Urine Negative (Negative); Benzodiazepines Screen,Urine Negative (Negative); Cannabinoid Screen,Urine Negative (Negative); Opiate Screen,Urine Negative (Negative); Phencyclidine Screen,Urine Negative (Negative)
[2019-01-15] MEDS: PANTOPRAZOLE 40 MG TABLET PO SCH (10:12)
[2019-01-15] MEDS: THIAMINE 100 MG TABLET PO SCH (10:12)
[2019-01-15] MEDS: SODIUM HYPOCHLORITE 0.25% IRRIG 473 ML BOTTLE TOP SCH (10:12)
[2019-01-15] MEDS: FOLIC ACID 1 MG TABLET PO SCH (10:12)
[2019-01-15] MEDS: MULTIVITAMIN (CENTRUM) TABLET PO SCH (10:12)
[2019-01-15] MEDS: INSULIN LISPRO 100 UNIT/ML SUBCUT SCH ×3 (10:19→18:09)
[2019-01-15] MEDS ORDERED: LIDOCAINE 1% 20 ML VIAL ONE (13:31)
[2019-01-15] MEDS ORDERED: ONDANSETRON 4 MG/2 ML VIAL ONE ×2 (14:33→14:35)
[2019-01-15] MEDS ORDERED: SEVOFLURANE 1 UNIT/15 MINUTE INH ONE (14:33)
[2019-01-15] MEDS ORDERED: HYDROmorphone 2 MG/1 ML VIAL ONE (14:33)
[2019-01-15] MEDS ORDERED: PROPOFOL 200 MG/20 ML VIAL IV ONE (14:33)
[2019-01-15] MEDS ORDERED: fentaNYL 100 MCG/2 ML VIAL ONE (14:34)
[2019-01-15] MEDS ORDERED: MIDAZOLAM 2 MG/2 ML VIAL ONE (14:34)
[2019-01-15] MEDS ORDERED: KETAMINE 500 MG/10 ML VIAL ONE (14:35)
[2019-01-15] MEDS ORDERED: HYDROmorphone 2 MG/1 ML VIAL IV PRN (14:41)
[2019-01-15] MEDS ORDERED: ONDANSETRON 4 MG/2 ML VIAL IV PRN (14:41)
[2019-01-16] MEDS: PIPERACILLIN/TAZOBACTAM 3,375 MG in SODIUM CHLORIDE 0.9% 100 ML IV SCH ×4 (00:10→23:06)
[2019-01-16 08:07] LABS: Basophils # 0.1 10*3/uL (0.0-0.2); Basophils % 0.7 % (0.0-0.8); Eosinophils # 0.2 10*3/uL (0.0-0.87); Eosinophils % 2.4 % (0.00-10.9); Hematocrit 27.1 VOL% (42.0-52.0); Immature Granulocytes % 0.7 %; Immature Granulocytes Absolute 0.05 #; Lymphocytes # 1.6 10*3/uL (1.4-4.0); Lymphocytes % 20.5 % (21.2-54.2); Mean Corpuscular HGB Conc 33.2 GM/DL (32-36); Mean Corpuscular Volume 93.8 FL (87-102); Mean Platelet Volume 12.7 FL (9.6-12.0); Neutrophils % 66.7 % (38.7-73.9); Platelet Count 103 T/CUMM (130-400); Red Blood Count 2.89 MC/CUMM (3.8-5.5); Red Cell Distribution Width 13.9 % (9.3-17.3); White Blood Count 7.6 T/CUMM (4-12)
[2019-01-16 08:26] LABS: Albumin 1.7 G/DL (3.4-5.0); Bilirubin,Total 1.1 MG/DL (0.2-1.0); Calcium 7.5 MG/DL (8.5-10.1); Osmolality,Calculated 286.3 MOS/KG (273-304); Total Protein 6.1 G/DL (6.4-8.3)
[2019-01-16] MEDS: LACTATED RINGERS 1,000 ML IV SCH ×3 (09:05→15:32)
[2019-01-16] MEDS: FOLIC ACID 1 MG TABLET PO SCH (09:07)
[2019-01-16] MEDS: MULTIVITAMIN (CENTRUM) TABLET PO SCH (09:07)
[2019-01-16] MEDS: INSULIN LISPRO 100 UNIT/ML SUBCUT SCH ×3 (09:07→16:26)
[2019-01-16] MEDS: THIAMINE 100 MG TABLET PO SCH (09:08)
[2019-01-16] MEDS: PANTOPRAZOLE 40 MG TABLET PO SCH (09:08)
[2019-01-16] MEDS: HYDROmorphone 2 MG/1 ML VIAL IV PRN ×3 (09:10→20:46)
[2019-01-16] MEDS: SODIUM HYPOCHLORITE 0.25% IRRIG 473 ML BOTTLE TOP SCH (10:52)
[2019-01-16] MEDS: CLINDAMYCIN INJ 300 MG in PREMIX 1 EACH IV SCH ×2 (13:31→20:00)
[2019-01-17] MEDS: CLINDAMYCIN INJ 300 MG in PREMIX 1 EACH IV SCH ×3 (05:48→12:08)
[2019-01-17 06:01] LABS: Basophils # 0.1 10*3/uL (0.0-0.2); Basophils % 0.8 % (0.0-0.8); Eosinophils # 0.2 10*3/uL (0.0-0.87); Eosinophils % 3.3 % (0.00-10.9); Hematocrit 26.7 VOL% (42.0-52.0); Hemoglobin 8.8 GM/DL (14.0-18.0); Immature Granulocytes % 0.8 %; Immature Granulocytes Absolute 0.05 #; Lymphocytes # 1.6 10*3/uL (1.4-4.0); Lymphocytes % 24.2 % (21.2-54.2); Mean Corpuscular Volume 94.7 FL (87-102); Mean Platelet Volume 12.9 FL (9.6-12.0); Monocytes % 10.3 % (1.7-12.7); Neutrophils % 60.6 % (38.7-73.9); Platelet Count 102 T/CUMM (130-400); Red Blood Count 2.82 MC/CUMM (3.8-5.5); Red Cell Distribution Width 13.8 % (9.3-17.3); White Blood Count 6.4 T/CUMM (4-12)
[2019-01-17 06:33] LABS: Albumin 1.7 G/DL (3.4-5.0); Calcium 7.9 MG/DL (8.5-10.1); Osmolality,Calculated 288.4 MOS/KG (273-304); Total Protein 6.1 G/DL (6.4-8.3)
[2019-01-17] MEDS: LACTATED RINGERS 1,000 ML IV SCH (08:15)
[2019-01-17] MEDS: PIPERACILLIN/TAZOBACTAM 3,375 MG in SODIUM CHLORIDE 0.9% 100 ML IV SCH (08:21)
[2019-01-17] MEDS: INSULIN LISPRO 100 UNIT/ML SUBCUT SCH ×2 (08:24→12:39)
[2019-01-17] MEDS: MULTIVITAMIN (CENTRUM) TABLET PO SCH (08:25)
[2019-01-17] MEDS: FOLIC ACID 1 MG TABLET PO SCH (08:26)
[2019-01-17] MEDS: PANTOPRAZOLE 40 MG TABLET PO SCH (08:26)
[2019-01-17] MEDS: THIAMINE 100 MG TABLET PO SCH (08:26)
[2019-01-17] MEDS: SODIUM HYPOCHLORITE 0.25% IRRIG 473 ML BOTTLE TOP SCH (10:00)
[2019-01-17] MEDS: IBUPROFEN 400 MG TABLET PO PRN (11:14)
[2019-01-17] MEDS: HYDROmorphone 2 MG/1 ML VIAL IV PRN (12:03)
[2019-01-17 13:53] VITALS: BP 102/73
== END 2019-01-17 14:45 | disposition hospice, home (50) | DRG 264 ==
LOC: N.3E 11:52
PROVIDERS: ADMIT Surgery; ATTEND Surgery